=== PATIENT | male | born 1960 | race Caucasian/White ===

== ENCOUNTER 2022-09-04 01:23 | Emergency (ER) | payer OTHER ==
[~2022-09-04] VITALS: Ht 177.8 cm; Wt 117.9 kg
[2022-09-04] MEDS ORDERED: ONDANSETRON HCL INJ 2MG/ML 2ML 2 MG/ML VIAL IV STA (01:32)
[2022-09-04 01:39] LABS: BASOPHILS # (AUTO) 0.1 (0.0-0.1); EOSINOPHILS # (AUTO) 0.2 (0.0-0.4); EOSINOPHILS % 1.9 % (0.0-6.0); HEMATOCRIT 41.7 % (38.2-49.6); HEMOGLOBIN 14.1 g/dL (14.0-18.0); LYMPHOCYTES % 37.4 % (18.0-39.1); MEAN CORPUSCULAR HEMOGLOBIN 31.3 pg (28-32); MEAN CORPUSCULAR HGB CONC 33.8 g/dL (31-35); MEAN CORPUSCULAR VOLUME 92.7 fL (81-99); MONOCYTES # (AUTO) 1.1 (0.2-0.8); MONOCYTES % 9.9 % (4.4-11.3); NEUTROPHILS # (AUTO) 5.3 (2.1-6.9); NEUTROPHILS % 49.5 % (38.7-80.0); PLATELET COUNT 217 x10e3/uL (140-360); RED CELL DISTRIBUTION WIDTH 12.4 % (11.7-14.4)
[2022-09-04] MEDS ORDERED: ONDANSETRON HCL INJ 2MG/ML 2ML 2 MG/ML VIAL ONE (01:39)
[2022-09-04] MEDS ORDERED: ASPIRIN 325 MG TAB ONE (01:39)
[2022-09-04] MEDS ORDERED: Morphine 4mg INJECTION 4 MG/ML INJ ONE (01:40)
[2022-09-04] MEDS ORDERED: Morphine 4mg INJECTION 4 MG/ML INJ IV ONE (01:45)
[2022-09-04] MEDS ORDERED: ASPIRIN 325 MG TAB PO ONE (01:45)
[2022-09-04 01:48] LABS: INR 1.19; PARTIAL THROMBOPLASTIN TIME 28.3 seconds (23.8-35.5); PROTHROMBIN TIME 15.6 seconds (11.9-14.5)
[2022-09-04 01:55] LABS: ALBUMIN 3.7 g/dL (3.5-5.0); ALBUMIN/GLOBULIN RATIO 1.1 (0.8-2.0); ANION GAP 13.5 mmol/L (8-16); POTASSIUM 3.5 mmol/L (3.5-5.1)
[2022-09-04 02:20] LABS: CREATININE, SERUM 1.02 mg/dL (0.72-1.25)
[2022-09-04] MEDS ORDERED: Morphine 4mg INJECTION 4 MG/ML INJ IV PRN (03:45)
[2022-09-04] MEDS ORDERED: ONDANSETRON HCL INJ 2MG/ML 2ML 2 MG/ML VIAL IV PRN (03:45)
[2022-09-04 04:59] LABS: CREATINE KINASE MB 26.4 ng/mL (0-5.0)
[2022-09-04 05:31] VITALS: O2SAT 97
[2022-09-04 05:48] LABS: CLARITY,URINE CLEAR (CLEAR); COLOR,URINE YELLOW (YELLOW); KETONES,URINE 1+ (NEGATIVE); LEUKOCYTE ESTERASE ,URINE NEGATIVE (NEGATIVE); NITRITE,URINE NEGATIVE (NEGATIVE); PROTEIN,URINE DIPSTICK NEGATIVE (NEGATIVE)
[2022-09-04 05:49] LABS: URINE UROBILINOGEN 0.2 mg/dL (0.2 - 1)
[2022-09-04 05:51] LABS: AMPHETAMINES SCREEN,URINE NEGATIVE (NEGATIVE); BENZODIAZEPINES SCREEN,URINE NEGATIVE (NEGATIVE); PHENCYCLIDINE SCREEN,URINE NEGATIVE (NEGATIVE)
[2022-09-04 06:00] LABS: BACTERIA,URINE FEW /HPF; EPITHELIAL CELLS,URINE RARE /LPF; RBC,URINE 0-5 /HPF (0-5); WBC,URINE (MAN) 0-5 /HPF (0-5)
[2022-09-04] MEDS ORDERED: SODIUM CHLORIDE FLUSH 10 ML SYR IV PRN (06:00)
[2022-09-04] MEDS ORDERED: HEPARIN SOD (PORCINE) 5,000 UNIT/ML VIAL IV ONE (06:15)
[2022-09-04] MEDS ORDERED: HEPARIN 25,000 UNIT/D5W 250ML 1,000 UNIT in DEXTROSE 5% 250ML 250 ML IV SCH (06:15)
[2022-09-04] MEDS ORDERED: HEPARIN 25,000 UNIT DRIP IV ONE (06:17)
== END 2022-09-04 08:30 | disposition other institution (70) ==
LOC: ER 01:24 → UNDOADMOB 03:42 → ERHOLD 03:42 → ER 08:30
DX: R07.9 Chest pain, unspecified (principal); I21.4 Non-ST elevation (NSTEMI) myocardial infarction; R77.8 Other specified abnormalities of plasma proteins; Z20.822 Contact with and (suspected) exposure to COVID-19
CPT/HCPCS: 36415; 71045; 80053; 80307; 81001; 82550; 82553; 83690; 83880; 84484; 85025; 85610; 85730; 93005; 99284; J1644; J2270; J2405; U0002